=== PATIENT | male | born 1980 | race Two or more races ===

== ENCOUNTER → 2018-05-31 | Outpatient (CLI) | payer OTHER ==
[~2018-05-31] MED LIST: ACET-1156 PO; FURO20TA3 PO; LACT10SO66 PO; OME20GT PO; PROP60CA34 PO; SPIR50TA5 PO
[2018-05-31 09:45] LABS: Basophils # (auto) 0.1 uL; Eosinophils # (auto) 0.4 uL; Lymphocytes # (auto) 0.4 uL; White Blood Cell 4.1 10^3/uL (4.4-10.8)
[2018-05-31 09:45] LABS: BUN/Creatinine Ratio 16.3; Calcium 7.3 mg/dL (8.5-10.1); Potassium 3.9 mmol/L (3.5-5.1)
[2018-05-31 09:47] LABS: Basophils % (auto) 2.8 % (0.0-2.0); Eosinophils % (auto) 10.7 % (0.0-7.0); Hemoglobin 11.5 g/dL (13.5-17.5); Lymphocytes % (auto) 9.6 % (10.0-50.0); Mean Corpuscular Hemoglobin 31.5 pg (28.0-32.0); Mean Corpuscular Hgb Conc. 33.8 g/dL (32.0-36.0); Mean Corpuscular Volume 93.2 fL (80.0-100.0); Monocytes # (auto) 0.4 uL; Monocytes % (auto) 8.5 % (0.0-12.0); Neutrophils # (auto) 2.8 uL; Neutrophils % (auto) 68.4 % (37.0-80.0); Red Blood Cells 3.65 10^6/uL (4.5-5.90); Red Cell Distribution Width 16.5 % (11.8-14.3)
[2018-05-31 10:00] LABS: Platelet Count (auto) 53 10^3/uL (140-450)
[2018-05-31 10:14] LABS: INR 1.42 (0.9-1.15); Prothrombin Time 14.9 sec (9.27-12.13)
== END | disposition home or self-care (01) ==
LOC: US 08:14
DX: R18.8 Other ascites (principal)
CPT/HCPCS: 36415; 49083; 76705; 76942; 80048; 85025; 85610; C1729; 10022

== ENCOUNTER 2018-06-10 22:59 | Inpatient (IN) | payer OTHER ==
[~2018-06-10] VITALS: Ht 157.5 cm; Wt 57.7 kg
[2018-06-10] MEDS: MIDAZOLAM DRIP 50 mg/50mL 50 ML IV SCH (00:05)
[2018-06-10] MEDS ORDERED: SODIUM CHLORIDE 0.9% 500 ML IV ONE (23:30)
[2018-06-10] MEDS ORDERED: DEXTROSE (50%) 50ML SYRG IV ONE (23:30)
[2018-06-10] MEDS ORDERED: ETOMIDATE (2MG/ML) 20ML VIAL IV ONE (23:45)
[2018-06-10] MEDS ORDERED: SUCCINYLCHOLINE CHLORIDE 20 MG/ML 10ML VIAL IV ONE (23:45)
[2018-06-11] VITALS (70 sets, daily range): BP systolic 72–115; BP diastolic 31–73
[2018-06-11 00:07] LABS: Hemoglobin 13.4 g/dL (13.5-17.5); Mean Corpuscular Hemoglobin 31.4 pg (28.0-32.0); Mean Corpuscular Volume 98.4 fL (80.0-100.0); Platelet Count (auto) 91 10^3/uL (140-450); Red Blood Cells 4.27 10^6/uL (4.5-5.90); Red Cell Distribution Width 17.6 % (11.8-14.3)
[2018-06-11 00:12] LABS: Basophils % (manual) 0 (0.0-2.0); Blast Cells 0; Myelocytes % 0; Promyelocytes % 0; Reactive Lymphocytes 0
[2018-06-11] MEDS ORDERED: SODIUM BICARBONATE 8.4 % INJ 50ML VIAL IV ONE ×2 (00:15→02:00)
[2018-06-11 00:16] LABS: Alanine Aminotransferase 19 U/L (16-61); Albumin 1.6 g/dL (3.4-5.0); Anion Gap 17 (5-15); Aspartate Aminotransferase 49 U/L (15-37); BUN/Creatinine Ratio 19.7; Blood Alcohol < 3.0 mg/dL (0-5); Blood Urea Nitrogen 40 mg/dL (7-18); Calcium 7.9 mg/dL (8.5-10.1); Carbon Dioxide 14 mmol/L (21-32); Chloride 98 mmol/L (98-107); GFR African American 47 mL/min; GFR Non-African American 39 mL/min; Glucose 144 mg/dL (74-106); INR 3.63 (0.9-1.15); Magnesium 2.4 mg/dL (1.6-2.6); Prothrombin Time 36.1 sec (9.27-12.13); Sodium 129 mmol/L (136-145)
[2018-06-11 00:17] LABS: Lactic Acid w/Reflex 9.4 mmol/L (0.4-2.0)
[2018-06-11 00:19] LABS: Partial Thromboplastin Time 76.9 sec (23.78-33.04)
[2018-06-11] MEDS ORDERED: NOREPINEPHRINE 8 MG/250ML KIT 250 ML IV ONE (00:20)
[2018-06-11 00:23] LABS: Potassium 6.9 mmol/L (3.5-5.1)
[2018-06-11 00:28] LABS: Alkaline Phosphatase 58 U/L (45-117); Bilirubin, Total 7.5 mg/dL (0.2-1.0); Total Protein 6.9 g/dL (6.4-8.2)
[2018-06-11] MEDS: NOREPINEPHRINE 8 MG/250ML KIT 250 ML IV SCH ×4 (00:40→22:06)
[2018-06-11 00:50] LABS: Band Neutrophils % (manual) 20; Eosinophils % (manual) 1 (0-7); Lymphocytes % (manual) 9 (10.0-50.0); Metamyelocytes % 5; Monocytes % (manual) 6 (0-12)
[2018-06-11 01:04] LABS: Urine WBC None Seen /hpf (0 - 3)
[2018-06-11] MEDS ORDERED: InsuLIN REG 1unit/0.01ml Soln (100units/ml) IV ONE (01:15)
[2018-06-11] MEDS ORDERED: CALCIUM GLUC 4.65meq/50ml D5AE 50 ML IV ONE (01:15)
[2018-06-11] MEDS ORDERED: VANCOMYCIN 1GM/250ML 250 ML IV ONE (01:15)
[2018-06-11] MEDS ORDERED: cefTRIAXone 1GM/10ml IVPUSH 10 ML IV ONE (01:15)
[2018-06-11] MEDS ORDERED: SODIUM CHLORIDE 0.9% 1,750 ML IV ONE (01:15)
[2018-06-11] MEDS ORDERED: DEXTROSE (50%) 50ML SYRG IV ONE ×2 (01:15→21:30)
[2018-06-11 01:22] LABS: Urine Bacteria NONE SEEN /hpf (None Seen); Urine Blood Negative /uL (Negative); Urine Hyaline Cast FEW /lpf (0 - 2); Urine Mucus FEW (None Seen); Urine Specific Gravity 1.013 (1.001-1.035)
[2018-06-11 01:29] LABS: Alcohol, Urine < 3.0 mg/dL (0-5); Amphetamine Screen, Urine NEGATIVE (NEGATIVE); Barbiturate Scree,Urine NEGATIVE (NEGATIVE); Benzodiazephine Screen, Urine NEGATIVE (NEGATIVE); Cannabinoid Screen, Urine NEGATIVE (NEGATIVE); Cocaine Screen, Urine NEGATIVE (NEGATIVE); Opiate Scree,Urine NEGATIVE (NEGATIVE); Phencyclidine Screen, Urine NEGATIVE (NEGATIVE)
[2018-06-11] MEDS ORDERED: EPINEPHrine HCL INJECTION 4 MG in SODIUM CHL 0.9% 250 ML IV ONE (01:45)
[2018-06-11] MEDS ORDERED: EPINEPHrine HCL 250 ML IV ONE (01:53)
[2018-06-11] MEDS ORDERED: LACTULOSE 20Gm/30ML SOLN PO ONE (02:00)
[2018-06-11] MEDS ORDERED: ALBUMIN 5% 500 ML IV ONE (03:15)
[2018-06-11] MEDS ORDERED: SODIUM POLYSTYRENE SULF 15GM/60ML SUSP PO ONE (03:15)
[2018-06-11] MEDS ORDERED: HETASTARCH 500 ML IV ONE (07:00)
[2018-06-11] MEDS ORDERED: DEXTROSE 50% SYRINGE 50 ML IV ONE ×2 (07:08→21:32)
[2018-06-11] MEDS ORDERED: FUROSEMIDE INJECTION 100 MG in SODIUM CHL 0.9% 90 ML IV ONE (07:30)
[2018-06-11] MEDS: DEXTROSE 10% 1,000 ML IV SCH ×2 (07:30→21:30)
[2018-06-11] MEDS: DOPamine 3200MCG/ML 250 ML IV SCH (08:00)
[2018-06-11] MEDS ORDERED: STERILE WATER IV ONE (08:15)
[2018-06-11] MEDS ORDERED: SODIUM BICARBONATE IV ONE (08:15)
[2018-06-11] MEDS ORDERED: fentaNYL Drip 2500mCg/250mlNS 250 ML IV ONE (09:02)
[2018-06-11 09:11] LABS: Hematocrit 32.9 % (41.0-53.0); Hemoglobin 10.6 g/dL (13.5-17.5); Mean Corpuscular Hemoglobin 30.9 pg (28.0-32.0); Mean Corpuscular Hgb Conc. 32.3 g/dL (32.0-36.0); Mean Corpuscular Volume 95.8 fL (80.0-100.0); Platelet Count (auto) 70 10^3/uL (140-450); Red Blood Cells 3.43 10^6/uL (4.5-5.90); Red Cell Distribution Width 17.1 % (11.8-14.3); White Blood Cell 13.2 10^3/uL (4.4-10.8)
[2018-06-11 09:22] LABS: Albumin 1.7 g/dL (3.4-5.0); BUN/Creatinine Ratio 20.6; Calcium 7.2 mg/dL (8.5-10.1); Potassium 5.3 mmol/L (3.5-5.1)
[2018-06-11 09:25] LABS: Total Protein 5.8 g/dL (6.4-8.2)
[2018-06-11 09:29] LABS: Basophils % (manual) 0 (0.0-2.0); Blast Cells 0; Eosinophils % (manual) 0 (0-7); Promyelocytes % 0; Reactive Lymphocytes 0
[2018-06-11] MEDS: fentaNYL Drip 2500mCg/250mlNS 250 ML IV SCH (09:32)
[2018-06-11] MEDS: MIDAZOLAM DRIP 50 mg/50mL 50 ML IV SCH (09:51)
[2018-06-11] MEDS: cefTRIAXone 1GM/10ml IVPUSH 10 ML IV SCH ×2 (10:09→21:37)
[2018-06-11 10:39] LABS: Band Neutrophils % (manual) 29; Lymphocytes % (manual) 9 (10.0-50.0); Metamyelocytes % 5; Monocytes % (manual) 4 (0-12); Myelocytes % 1
[2018-06-11] MEDS: ALBUMIN 25% 100 ML IV SCH ×2 (10:45→17:49)
[2018-06-11 11:54] LABS: BUN/Creatinine Ratio 22.3; Calcium 7.3 mg/dL (8.5-10.1); Potassium 5.2 mmol/L (3.5-5.1)
[2018-06-11] MEDS ORDERED: phytonadione 10 MG in SODIUM CHL 0.9% 50 ML IV ONE (12:45)
[2018-06-11] MEDS ORDERED: LIDOCAINE 1% (LOCAL ANESTH.) PF 5ml SDV ONE (13:07)
[2018-06-11] MEDS: LACTULOSE 20Gm/30ML SOLN PO SCH ×2 (13:15→17:49)
[2018-06-11] MEDS: PANTOPRAZOLE 40 MG/10 ML VIAL IV SCH (13:23)
[2018-06-11] MEDS ORDERED: VANCOMYCIN PER PHARMACY 0 MG IV SCH (13:45)
[2018-06-11 14:37] LABS: Urine Bacteria None Seen /hpf (None Seen); Urine WBC None Seen /hpf (0 - 3)
[2018-06-11 14:55] LABS: Lactic Acid w/Reflex 10.4 mmol/L (0.4-2.0)
[2018-06-11] MEDS: VANCOMYCIN 1GM/250ML 250 ML IV SCH (15:00)
[2018-06-11 15:13] LABS: Creatinine, Urine 104 mg/dL (30.0-125.0); Sodium Urine 20 mmol/L (40-220)
[2018-06-11 22:25] LABS: BUN/Creatinine Ratio 22.2; Calcium 7.1 mg/dL (8.5-10.1); Potassium 4.7 mmol/L (3.5-5.1)
[2018-06-12] VITALS (116 sets, daily range): BP systolic 65–142; BP diastolic 30–82
[2018-06-12] MEDS: LACTULOSE 20Gm/30ML SOLN PO SCH ×5 (00:14→23:43)
[2018-06-12] MEDS: ACCU-CHEK COMFORT CURVE STRIP VI SCH ×11 (00:14→22:00)
[2018-06-12] MEDS ORDERED: OME20GT PO (00:33)
[2018-06-12] MEDS ORDERED: ACET-1156 PO (00:33)
[2018-06-12] MEDS ORDERED: SPIR50TA5 PO (00:33)
[2018-06-12] MEDS ORDERED: PROP60CA34 PO (00:33)
[2018-06-12] MEDS ORDERED: LACT10SO66 PO (00:33)
[2018-06-12] MEDS ORDERED: FURO20TA3 PO (00:33)
[2018-06-12] MEDS: NOREPINEPHRINE 8 MG/250ML KIT 250 ML IV SCH ×3 (03:00→21:45)
[2018-06-12] MEDS: ALBUMIN 25% 100 ML IV SCH (03:19)
[2018-06-12 04:30] LABS: White Blood Cell 12.3 10^3/uL (4.4-10.8)
[2018-06-12 04:32] LABS: Hematocrit 27.5 % (41.0-53.0); Hemoglobin 9.3 g/dL (13.5-17.5); Mean Corpuscular Hemoglobin 31.9 pg (28.0-32.0); Mean Corpuscular Hgb Conc. 33.9 g/dL (32.0-36.0); Mean Corpuscular Volume 94.2 fL (80.0-100.0); Platelet Count (auto) 27 10^3/uL (140-450); Red Blood Cells 2.92 10^6/uL (4.5-5.90); Red Cell Distribution Width 16.6 % (11.8-14.3)
[2018-06-12 04:46] LABS: Basophils % (manual) 0 (0.0-2.0); Blast Cells 0; Promyelocytes % 0; Reactive Lymphocytes 0
[2018-06-12 04:58] LABS: Albumin 2.2 g/dL (3.4-5.0); BUN/Creatinine Ratio 26.9; Potassium 4.4 mmol/L (3.5-5.1)
[2018-06-12 05:01] LABS: Bilirubin, Total 7.4 mg/dL (0.2-1.0); Total Protein 5.6 g/dL (6.4-8.2)
[2018-06-12 05:43] LABS: Band Neutrophils % (manual) 19; Eosinophils % (manual) 1 (0-7); Lymphocytes % (manual) 5 (10.0-50.0); Metamyelocytes % 4; Monocytes % (manual) 10 (0-12); Myelocytes % 1
[2018-06-12] MEDS: DOPamine 3200MCG/ML 250 ML IV SCH ×2 (08:00→21:44)
[2018-06-12] MEDS: fentaNYL Drip 2500mCg/250mlNS 250 ML IV SCH (09:04)
[2018-06-12] MEDS: cefTRIAXone 1GM/10ml IVPUSH 10 ML IV SCH (09:20)
[2018-06-12] MEDS: PANTOPRAZOLE 40 MG/10 ML VIAL IV SCH (09:20)
[2018-06-12 10:17] LABS: BUN/Creatinine Ratio 29.8; Calcium 7.2 mg/dL (8.5-10.1); Potassium 3.9 mmol/L (3.5-5.1)
[2018-06-12] MEDS: VANCOMYCIN 1GM/250ML 250 ML IV SCH (15:00)
[2018-06-12] MEDS: PIPERACILLIN-TAZOB 3.375GM 100 ML IV SCH ×2 (16:24→21:43)
[2018-06-12] MEDS: HYDROCORTISONE SOD SUCC 100 MG/2ML INJ VIAL IV SCH ×2 (17:59→21:43)
[2018-06-12] MEDS: DEXTROSE 10% 1,000 ML IV SCH (21:43)
[2018-06-12] MEDS ORDERED: PIPERACILLIN-TAZOB 2.25GM 50 ML IV SCH (22:00)
[2018-06-12] MEDS: MIDAZOLAM DRIP 50 mg/50mL 50 ML IV SCH (23:45)
[2018-06-13] VITALS (112 sets, daily range): BP systolic 68–146; BP diastolic 36–77
[2018-06-13 00:32] LABS: BUN/Creatinine Ratio 36.3; Potassium 3.9 mmol/L (3.5-5.1)
[2018-06-13] MEDS: ACCU-CHEK COMFORT CURVE STRIP VI SCH ×11 (02:19→22:00)
[2018-06-13] MEDS: PIPERACILLIN-TAZOB 3.375GM 100 ML IV SCH ×4 (04:00→22:09)
[2018-06-13] MEDS: HYDROCORTISONE SOD SUCC 100 MG/2ML INJ VIAL IV SCH ×3 (06:07→22:09)
[2018-06-13] MEDS: LACTULOSE 20Gm/30ML SOLN PO SCH ×3 (06:07→18:25)
[2018-06-13] MEDS: fentaNYL Drip 2500mCg/250mlNS 250 ML IV SCH (09:04)
[2018-06-13] MEDS: PANTOPRAZOLE 40 MG/10 ML VIAL IV SCH (09:25)
[2018-06-13 10:31] LABS: Hematocrit 29.1 % (41.0-53.0); Hemoglobin 9.8 g/dL (13.5-17.5); Mean Corpuscular Hemoglobin 31.1 pg (28.0-32.0); Mean Corpuscular Hgb Conc. 33.6 g/dL (32.0-36.0); Mean Corpuscular Volume 92.6 fL (80.0-100.0); Red Blood Cells 3.14 10^6/uL (4.5-5.90); Red Cell Distribution Width 16.2 % (11.8-14.3); White Blood Cell 13.4 10^3/uL (4.4-10.8)
[2018-06-13 10:36] LABS: Basophils % (manual) 0 (0.0-2.0); Blast Cells 0; Metamyelocytes % 0; Myelocytes % 0; Promyelocytes % 0; Reactive Lymphocytes 0
[2018-06-13 10:45] LABS: INR 1.91 (0.9-1.15); Prothrombin Time 19.7 sec (9.27-12.13)
[2018-06-13 11:08] LABS: Albumin 2.1 g/dL (3.4-5.0); BUN/Creatinine Ratio 39.1; Bilirubin, Total 9.9 mg/dL (0.2-1.0); Calcium 7.4 mg/dL (8.5-10.1); Magnesium 2.7 mg/dL (1.6-2.6); Potassium 3.6 mmol/L (3.5-5.1); Total Protein 5.5 g/dL (6.4-8.2)
[2018-06-13 11:35] LABS: Eosinophils % (manual) 1 (0-7)
[2018-06-13 11:36] LABS: Platelet Count (auto) 16 10^3/uL (140-450)
[2018-06-13 11:38] LABS: Band Neutrophils % (manual) 5; Lymphocytes % (manual) 3 (10.0-50.0); Monocytes % (manual) 4 (0-12)
[2018-06-13] MEDS: VANCOMYCIN 1GM/250ML 250 ML IV SCH (14:09)
[2018-06-13] MEDS: THIAMINE 100mg/ml INJ (200mg/2ml VIAL) IV SCH (14:17)
[2018-06-13 17:57] LABS: % Iron Saturation 73.2 % (20-55)
[2018-06-13 18:10] LABS: Folate (Folic Acid) 5.49 ng/mL (5.38-24)
[2018-06-13] MEDS: DEXTROSE 10% 1,000 ML IV SCH (19:30)
[2018-06-13 22:51] LABS: BUN/Creatinine Ratio 46.7; Calcium 7.6 mg/dL (8.5-10.1); Potassium 3.2 mmol/L (3.5-5.1)
[2018-06-13] MEDS: MIDAZOLAM DRIP 50 mg/50mL 50 ML IV SCH (23:45)
[2018-06-14] VITALS (106 sets, daily range): BP systolic 101–156; BP diastolic 59–96
[2018-06-14] MEDS ORDERED: DEXTROSE (50%) 50ML SYRG IV PRN (00:15)
[2018-06-14] MEDS: LACTULOSE 20Gm/30ML SOLN PO SCH ×4 (00:23→18:47)
[2018-06-14] MEDS: NOREPINEPHRINE 8 MG/250ML KIT 250 ML IV SCH (00:45)
[2018-06-14] MEDS: POTASSIUM CHL 20MEQ/100ML 100 ML IV SCH ×2 (01:05→03:35)
[2018-06-14] MEDS: ACCU-CHEK COMFORT CURVE STRIP VI SCH ×5 (03:44→19:45)
[2018-06-14] MEDS: InsuLIN REG 1unit/0.01ml Soln (100units/ml) SC SCH ×5 (03:44→19:45)
[2018-06-14] MEDS: PIPERACILLIN-TAZOB 3.375GM 100 ML IV SCH ×4 (05:30→22:19)
[2018-06-14] MEDS: HYDROCORTISONE SOD SUCC 100 MG/2ML INJ VIAL IV SCH ×3 (05:44→22:19)
[2018-06-14] MEDS: DOPamine 3200MCG/ML 250 ML IV SCH ×2 (08:00→17:33)
[2018-06-14] MEDS: fentaNYL Drip 2500mCg/250mlNS 250 ML IV SCH (09:04)
[2018-06-14] MEDS: THIAMINE 100mg/ml INJ (200mg/2ml VIAL) IV SCH (09:56)
[2018-06-14] MEDS: PANTOPRAZOLE 40 MG/10 ML VIAL IV SCH (09:56)
[2018-06-14 11:16] LABS: Basophils # (auto) 0 uL; Eosinophils # (auto) 0 uL; Lymphocytes % (auto) 3.3 % (10.0-50.0); Mean Corpuscular Volume 92.9 fL (80.0-100.0); Red Cell Distribution Width 16.3 % (11.8-14.3)
[2018-06-14 11:17] LABS: Hematocrit 30.3 % (41.0-53.0); Hemoglobin 10.3 g/dL (13.5-17.5); Lymphocytes # (auto) 0.6 uL; Mean Corpuscular Hemoglobin 31.7 pg (28.0-32.0); Mean Corpuscular Hgb Conc. 34.1 g/dL (32.0-36.0); Monocytes # (auto) 1.1 uL; Monocytes % (auto) 6.3 % (0.0-12.0); Neutrophils # (auto) 15.2 uL; Neutrophils % (auto) 90.4 % (37.0-80.0); Nucleated Red Blood Cells % 0.5 %; Platelet Count (auto) 22 10^3/uL (140-450); Red Blood Cells 3.26 10^6/uL (4.5-5.90); White Blood Cell 16.8 10^3/uL (4.4-10.8)
[2018-06-14 11:29] LABS: Albumin 2.1 g/dL (3.4-5.0); BUN/Creatinine Ratio 50.6; Bilirubin, Total 11.3 mg/dL (0.2-1.0); Calcium 7.6 mg/dL (8.5-10.1); Potassium 3.6 mmol/L (3.5-5.1)
[2018-06-14] MEDS: VANCOMYCIN 1GM/250ML 250 ML IV SCH (14:55)
[2018-06-14] MEDS ORDERED: THIAMINE INJ 100 MG, MULTIPLE VITAMIN 10 ML, FOLIC ACID 1 MG, MAGNESIUM SULF SDV 50% 8 ... IV SCH ×5 (18:45)
[2018-06-14] MEDS: [UNRECOGNIZED DRUG - OTHER] IV SCH (21:14)
[2018-06-14] MEDS: FOLIC ACID IV SCH (21:14)
[2018-06-14] MEDS: MULTIPLE VITAMIN IV SCH (21:14)
[2018-06-14] MEDS: THIAMINE IV SCH (21:14)
[2018-06-14 23:34] LABS: BUN/Creatinine Ratio 55.1; Calcium 7.6 mg/dL (8.5-10.1); Potassium 3.5 mmol/L (3.5-5.1)
[2018-06-15] VITALS (94 sets, daily range): BP systolic 74–161; BP diastolic 43–84
[2018-06-15] MEDS: InsuLIN REG 1unit/0.01ml Soln (100units/ml) SC SCH ×7 (00:08→23:48)
[2018-06-15] MEDS: ACCU-CHEK COMFORT CURVE STRIP VI SCH ×7 (00:08→23:48)
[2018-06-15] MEDS: LACTULOSE 20Gm/30ML SOLN PO SCH ×5 (00:13→23:47)
[2018-06-15] MEDS: VANCOMYCIN 1GM/250ML 250 ML IV SCH ×2 (03:00→16:08)
[2018-06-15] MEDS: PIPERACILLIN-TAZOB 3.375GM 100 ML IV SCH ×4 (04:00→22:00)
[2018-06-15] MEDS: HYDROCORTISONE SOD SUCC 100 MG/2ML INJ VIAL IV SCH ×3 (06:00→16:14)
[2018-06-15 09:00] LABS: Hematocrit 30.5 % (41.0-53.0); Hemoglobin 10.7 g/dL (13.5-17.5); Mean Corpuscular Hemoglobin 32.5 pg (28.0-32.0); Mean Corpuscular Hgb Conc. 34.9 g/dL (32.0-36.0); Red Blood Cells 3.28 10^6/uL (4.5-5.90); Red Cell Distribution Width 16.3 % (11.8-14.3); White Blood Cell 16.3 10^3/uL (4.4-10.8)
[2018-06-15] MEDS: fentaNYL Drip 2500mCg/250mlNS 250 ML IV SCH ×2 (09:04→19:45)
[2018-06-15 09:07] LABS: Platelet Count (auto) 18 10^3/uL (140-450)
[2018-06-15 09:08] LABS: Basophils % (manual) 0 (0.0-2.0); Blast Cells 0; Eosinophils % (manual) 0 (0-7); Metamyelocytes % 0; Myelocytes % 0; Promyelocytes % 0; Reactive Lymphocytes 0
[2018-06-15] MEDS: NOREPINEPHRINE 8 MG/250ML KIT 250 ML IV SCH (09:16)
[2018-06-15] MEDS: MIDAZOLAM DRIP 50 mg/50mL 50 ML IV SCH (09:16)
[2018-06-15] MEDS: DEXTROSE 10% 1,000 ML IV SCH (09:23)
[2018-06-15] MEDS: PANTOPRAZOLE 40 MG/10 ML VIAL IV SCH (10:13)
[2018-06-15 10:48] LABS: Band Neutrophils % (manual) 1; Lymphocytes % (manual) 2 (10.0-50.0); Monocytes % (manual) 6 (0-12)
[2018-06-15 10:57] LABS: BUN/Creatinine Ratio 50.7; Calcium 7.7 mg/dL (8.5-10.1); Potassium 3.4 mmol/L (3.5-5.1)
[2018-06-15] MEDS: POTASSIUM CHL 20MEQ/100ML 100 ML IV SCH ×2 (20:58→23:00)
[2018-06-15] MEDS: [UNRECOGNIZED DRUG - OTHER] IV SCH (20:59)
[2018-06-15] MEDS: FOLIC ACID IV SCH (20:59)
[2018-06-15] MEDS: MULTIPLE VITAMIN IV SCH (20:59)
[2018-06-15] MEDS: THIAMINE IV SCH (20:59)
[2018-06-16] VITALS (104 sets, daily range): BP systolic 93–153; BP diastolic 51–89
[2018-06-16] MEDS: DOPamine 3200MCG/ML 250 ML IV SCH (00:01)
[2018-06-16] MEDS: VANCOMYCIN 1GM/250ML 250 ML IV SCH ×2 (02:47→16:27)
[2018-06-16] MEDS: InsuLIN REG 1unit/0.01ml Soln (100units/ml) SC SCH ×5 (04:00→20:08)
[2018-06-16 04:14] LABS: BUN/Creatinine Ratio 52.3; Calcium 7.4 mg/dL (8.5-10.1); Potassium 3.6 mmol/L (3.5-5.1)
[2018-06-16] MEDS: ACCU-CHEK COMFORT CURVE STRIP VI SCH ×5 (04:28→20:08)
[2018-06-16] MEDS: PIPERACILLIN-TAZOB 3.375GM 100 ML IV SCH ×4 (04:28→21:41)
[2018-06-16] MEDS: HYDROCORTISONE SOD SUCC 100 MG/2ML INJ VIAL IV SCH ×3 (06:08→21:41)
[2018-06-16] MEDS: LACTULOSE 20Gm/30ML SOLN PO SCH ×3 (06:08→18:23)
[2018-06-16] MEDS: MIDAZOLAM DRIP 50 mg/50mL 50 ML IV SCH ×2 (10:04→23:45)
[2018-06-16] MEDS: NOREPINEPHRINE 8 MG/250ML KIT 250 ML IV SCH (10:04)
[2018-06-16] MEDS: PANTOPRAZOLE 40 MG/10 ML VIAL IV SCH (10:17)
[2018-06-16 10:57] LABS: Hemoglobin 9.4 g/dL (13.5-17.5); White Blood Cell 13.1 10^3/uL (4.4-10.8)
[2018-06-16 10:58] LABS: Mean Corpuscular Hemoglobin 31.5 pg (28.0-32.0); Mean Corpuscular Hgb Conc. 33.6 g/dL (32.0-36.0); Mean Corpuscular Volume 93.6 fL (80.0-100.0); Red Blood Cells 2.99 10^6/uL (4.5-5.90); Red Cell Distribution Width 16.1 % (11.8-14.3)
[2018-06-16 11:06] LABS: Platelet Count (auto) 15 10^3/uL (140-450)
[2018-06-16 11:07] LABS: Basophils % (manual) 0 (0.0-2.0); Blast Cells 0; Eosinophils % (manual) 0 (0-7); Metamyelocytes % 0; Myelocytes % 0; Promyelocytes % 0; Reactive Lymphocytes 0
[2018-06-16 11:12] LABS: BUN/Creatinine Ratio 45.2; Calcium 7.6 mg/dL (8.5-10.1); Potassium 3.4 mmol/L (3.5-5.1)
[2018-06-16 11:37] LABS: Band Neutrophils % (manual) 1; Lymphocytes % (manual) 2 (10.0-50.0); Monocytes % (manual) 1 (0-12)
[2018-06-16] MEDS: FUROSEMIDE INJECTION 100 MG in D5W 5% 90 ML IV SCH (12:10)
[2018-06-16] MEDS ORDERED: ALBUMIN 25% 100 ML IV ONE (17:45)
[2018-06-16] MEDS ORDERED: DIGOXIN (250MCG/ML) 2 ML AMPULE IV ONE (17:45)
[2018-06-16] MEDS ORDERED: DIGOXIN (250MCG/ML) 2 ML AMPULE ONE (17:48)
[2018-06-16] MEDS ORDERED: AMIODARONE HCL 900 MG IV ONE (17:49)
[2018-06-16] MEDS ORDERED: SUCCINYLCHOLINE CHLORIDE 20 MG/ML 10ML VIAL IV ONE (18:00)
[2018-06-16] MEDS ORDERED: ETOMIDATE (2MG/ML) 20ML VIAL IV ONE ×4 (18:00→22:15)
[2018-06-16] MEDS ORDERED: LIDOCAINE 1% (LOCAL ANESTH.) PF 5ml SDV ONE (20:29)
[2018-06-16] MEDS ORDERED: PROPOFOL 0 ML IV ONE (20:33)
[2018-06-16] MEDS: MULTIPLE VITAMIN IV SCH (21:41)
[2018-06-16] MEDS: FOLIC ACID IV SCH (21:41)
[2018-06-16] MEDS: THIAMINE IV SCH (21:41)
[2018-06-16] MEDS: [UNRECOGNIZED DRUG - OTHER] IV SCH (21:41)
[2018-06-16] MEDS ORDERED: LORazepam 2MG/ML-1ML VIAL IV PRN (22:30)
[2018-06-16 22:41] LABS: BUN/Creatinine Ratio 39.7; Calcium 7.6 mg/dL (8.5-10.1); Potassium 3.1 mmol/L (3.5-5.1)
[2018-06-16] MEDS: AMIODARONE HCL 900 MG in DEXTROSE 500 ML IV SCH (23:51)
[2018-06-17] VITALS (69 sets, daily range): BP systolic 87–161; BP diastolic 32–102
[2018-06-17] MEDS ORDERED: POTASSIUM CHL 20MEQ/100ML 100 ML IV PRN
[2018-06-17] MEDS: ACCU-CHEK COMFORT CURVE STRIP VI SCH ×6 (00:02→20:06)
[2018-06-17] MEDS: LACTULOSE 20Gm/30ML SOLN PO SCH ×4 (00:02→19:00)
[2018-06-17] MEDS: POTASSIUM CHL 20MEQ/100ML 100 ML IV SCH ×2 (00:02→02:06)
[2018-06-17] MEDS: InsuLIN REG 1unit/0.01ml Soln (100units/ml) SC SCH ×6 (00:23→20:06)
[2018-06-17] MEDS: NOREPINEPHRINE 8 MG/250ML KIT 250 ML IV SCH (00:45)
[2018-06-17] MEDS: VANCOMYCIN 1GM/250ML 250 ML IV SCH ×2 (03:10→14:45)
[2018-06-17] MEDS: fentaNYL Drip 2500mCg/250mlNS 250 ML IV SCH (04:10)
[2018-06-17] MEDS: PIPERACILLIN-TAZOB 3.375GM 100 ML IV SCH ×4 (04:25→22:08)
[2018-06-17] MEDS ORDERED: FUROSEMIDE INJECTION 10 ML ONE (04:36)
[2018-06-17] MEDS: FUROSEMIDE INJECTION 100 MG in D5W 5% 90 ML IV SCH (04:42)
[2018-06-17] MEDS: HYDROCORTISONE SOD SUCC 100 MG/2ML INJ VIAL IV SCH ×2 (07:10→14:44)
[2018-06-17] MEDS: DOPamine 3200MCG/ML 250 ML IV SCH (09:36)
[2018-06-17 11:17] LABS: Platelet Count (auto) 40 10^3/uL (140-450)
[2018-06-17] MEDS: PANTOPRAZOLE 40 MG/10 ML VIAL IV SCH (11:18)
[2018-06-17 11:19] LABS: Hematocrit 25.9 % (41.0-53.0); Hemoglobin 8.8 g/dL (13.5-17.5); Mean Corpuscular Hemoglobin 32.8 pg (28.0-32.0); Mean Corpuscular Hgb Conc. 33.9 g/dL (32.0-36.0); Mean Corpuscular Volume 96.7 fL (80.0-100.0); Red Blood Cells 2.68 10^6/uL (4.5-5.90); Red Cell Distribution Width 16.5 % (11.8-14.3); White Blood Cell 26.1 10^3/uL (4.4-10.8)
[2018-06-17 11:22] LABS: Basophils % (manual) 0 (0.0-2.0); Blast Cells 0; Metamyelocytes % 0; Myelocytes % 0; Promyelocytes % 0; Reactive Lymphocytes 0
[2018-06-17] MEDS ORDERED: MORPHINE SULF INJ 2 MG/ML SYRINGE 1ML ONE (11:25)
[2018-06-17 11:27] LABS: INR 1.72 (0.9-1.15); Partial Thromboplastin Time 40.8 sec (23.78-33.04); Prothrombin Time 17.8 sec (9.27-12.13)
[2018-06-17 11:39] LABS: BUN/Creatinine Ratio 36.2; Calcium 7.1 mg/dL (8.5-10.1); Potassium 3.5 mmol/L (3.5-5.1)
[2018-06-17] MEDS: MORPHINE SULF INJ 2 MG/ML SYRINGE 1ML IV PRN ×2 (11:40→16:27)
[2018-06-17 12:41] LABS: Band Neutrophils % (manual) 1; Eosinophils % (manual) 1 (0-7); Lymphocytes % (manual) 3 (10.0-50.0); Monocytes % (manual) 5 (0-12)
[2018-06-17] MEDS ORDERED: FUROSEMIDE INJECTION 100 MG in D5W 5% 90 ML IV SCH (18:30)
[2018-06-17] MEDS: PROPOFOL 100 ML IV SCH (20:06)
[2018-06-17] MEDS: THIAMINE IV SCH (21:01)
[2018-06-17] MEDS: FOLIC ACID IV SCH (21:01)
[2018-06-17] MEDS: [UNRECOGNIZED DRUG - OTHER] IV SCH (21:01)
[2018-06-17] MEDS: MULTIPLE VITAMIN IV SCH (21:01)
[2018-06-17 22:42] LABS: BUN/Creatinine Ratio 32.2; Calcium 7.1 mg/dL (8.5-10.1); Potassium 3.5 mmol/L (3.5-5.1)
[2018-06-17] MEDS: AMIODARONE HCL 900 MG in DEXTROSE 500 ML IV SCH (23:12)
[2018-06-18] VITALS (109 sets, daily range): BP systolic 89–150; BP diastolic 32–79
[2018-06-18] MEDS: ACCU-CHEK COMFORT CURVE STRIP VI SCH ×5 (00:04→18:14)
[2018-06-18] MEDS: InsuLIN REG 1unit/0.01ml Soln (100units/ml) SC SCH ×5 (00:06→18:14)
[2018-06-18] MEDS: LACTULOSE 20Gm/30ML SOLN PO SCH ×4 (00:06→18:15)
[2018-06-18] MEDS: NOREPINEPHRINE 8 MG/250ML KIT 250 ML IV SCH (00:45)
[2018-06-18] MEDS: VANCOMYCIN 1GM/250ML 250 ML IV SCH ×2 (03:11→15:10)
[2018-06-18 03:51] LABS: Basophils # (auto) 0 uL; Eosinophils # (auto) 0 uL; Hemoglobin 8.4 g/dL (13.5-17.5); Lymphocytes # (auto) 0.4 uL; Lymphocytes % (auto) 2.5 % (10.0-50.0); Mean Corpuscular Hemoglobin 32.2 pg (28.0-32.0); Mean Corpuscular Volume 96.3 fL (80.0-100.0); Neutrophils # (auto) 16.3 uL; White Blood Cell 17.6 10^3/uL (4.4-10.8)
[2018-06-18 03:54] LABS: Mean Corpuscular Hgb Conc. 33.5 g/dL (32.0-36.0); Monocytes # (auto) 0.9 uL; Monocytes % (auto) 4.9 % (0.0-12.0); Neutrophils % (auto) 92.6 % (37.0-80.0); Nucleated Red Blood Cells % 0.1 %; Platelet Count (auto) 30 10^3/uL (140-450); Red Blood Cells 2.59 10^6/uL (4.5-5.90)
[2018-06-18] MEDS: PIPERACILLIN-TAZOB 3.375GM 100 ML IV SCH ×4 (04:07→21:35)
[2018-06-18 04:25] LABS: BUN/Creatinine Ratio 27.1; Bilirubin, Total 13.8 mg/dL (0.2-1.0); Calcium 7.1 mg/dL (8.5-10.1); Magnesium 2.2 mg/dL (1.6-2.6); Phosphorus 3.6 mg/dL (2.5-4.90); Potassium 3.6 mmol/L (3.5-5.1); Total Protein 5.7 g/dL (6.4-8.2)
[2018-06-18] MEDS: fentaNYL Drip 2500mCg/250mlNS 250 ML IV SCH ×2 (05:30→20:00)
[2018-06-18] MEDS: DOPamine 3200MCG/ML 250 ML IV SCH (05:33)
[2018-06-18] MEDS ORDERED: POTASSIUM CHL 20MEQ/100ML 100 ML IV SCH (11:00)
[2018-06-18] MEDS: PANTOPRAZOLE 40 MG/10 ML VIAL IV SCH (11:00)
[2018-06-18] MEDS ORDERED: POTASSIUM CHL 20MEQ/100ML 100 ML IV ONE (11:30)
[2018-06-18] MEDS: PROPOFOL 100 ML IV SCH (14:45)
[2018-06-18] MEDS ORDERED: LIDOCAINE 1% (LOCAL ANESTH.) PF 5ml SDV ONE (15:41)
[2018-06-18] MEDS ORDERED: ALBUMIN 25% 100 ML IV PRN (16:45)
[2018-06-18] MEDS ORDERED: DEXTROSE (50%) 50ML SYRG IV PRN (18:00)
[2018-06-18] MEDS: FOLIC ACID IV SCH (20:44)
[2018-06-18] MEDS: [UNRECOGNIZED DRUG - OTHER] IV SCH (20:44)
[2018-06-18] MEDS: THIAMINE IV SCH (20:44)
[2018-06-18] MEDS: MULTIPLE VITAMIN IV SCH (20:44)
[2018-06-18] MEDS: AMIODARONE HCL 900 MG in DEXTROSE 500 ML IV SCH (23:51)
[2018-06-19] VITALS (101 sets, daily range): BP systolic 91–159; BP diastolic 32–87
[2018-06-19] MEDS: PROPOFOL 100 ML IV SCH
[2018-06-19] MEDS: ACCU-CHEK COMFORT CURVE STRIP VI SCH ×4 (00:01→18:04)
[2018-06-19] MEDS: InsuLIN REG 1unit/0.01ml Soln (100units/ml) SC SCH ×4 (00:01→18:04)
[2018-06-19] MEDS: NOREPINEPHRINE 8 MG/250ML KIT 250 ML IV SCH (00:45)
[2018-06-19] MEDS: VANCOMYCIN 1GM/250ML 250 ML IV SCH (03:01)
[2018-06-19] MEDS: PIPERACILLIN-TAZOB 3.375GM 100 ML IV SCH ×2 (03:54→10:08)
[2018-06-19 05:00] LABS: Basophils # (auto) 0.1 uL; Eosinophils # (auto) 0 uL; Lymphocytes # (auto) 0.3 uL; Monocytes # (auto) 0.8 uL; Neutrophils # (auto) 12.4 uL
[2018-06-19 05:02] LABS: Basophils % (auto) 0.4 % (0.0-2.0); Eosinophils % (auto) 0.1 % (0.0-7.0); Hematocrit 22.2 % (41.0-53.0); Hemoglobin 7.6 g/dL (13.5-17.5); Lymphocytes % (auto) 2.1 % (10.0-50.0); Mean Corpuscular Hemoglobin 33.3 pg (28.0-32.0); Mean Corpuscular Hgb Conc. 34.2 g/dL (32.0-36.0); Mean Corpuscular Volume 97.2 fL (80.0-100.0); Monocytes % (auto) 5.8 % (0.0-12.0); Neutrophils % (auto) 91.6 % (37.0-80.0); Nucleated Red Blood Cells % 0.1 %; Platelet Count (auto) 49 10^3/uL (140-450); Red Blood Cells 2.28 10^6/uL (4.5-5.90); Red Cell Distribution Width 16.6 % (11.8-14.3); White Blood Cell 13.5 10^3/uL (4.4-10.8)
[2018-06-19 05:16] LABS: Albumin 2.2 g/dL (3.4-5.0); BUN/Creatinine Ratio 27.1; Bilirubin, Total 14.2 mg/dL (0.2-1.0); Calcium 7.4 mg/dL (8.5-10.1); Total Protein 5.4 g/dL (6.4-8.2)
[2018-06-19 05:18] LABS: Potassium 2.8 mmol/L (3.5-5.1)
[2018-06-19] MEDS: LACTULOSE 20Gm/30ML SOLN PO SCH ×5 (05:30→22:09)
[2018-06-19] MEDS: DOPamine 3200MCG/ML 250 ML IV SCH (08:00)
[2018-06-19] MEDS: POTASSIUM CHL 20MEQ/100ML 100 ML IV SCH ×6 (08:22→20:30)
[2018-06-19] MEDS: AMIODARONE HCL 900 MG in DEXTROSE 500 ML IV SCH (08:23)
[2018-06-19] MEDS: PANTOPRAZOLE 40 MG/10 ML VIAL IV SCH (10:08)
[2018-06-19] MEDS ORDERED: POTASSIUM CHL 20MEQ/100ML 100 ML IV SCH ×2 (12:00→13:15)
[2018-06-19] MEDS ORDERED: FUROSEMIDE 40 MG/4 ML VIAL IV ONE (13:30)
[2018-06-19] MEDS: cefTRIAXone 1GM/10ml IVPUSH 10 ML IV SCH (14:37)
[2018-06-19 20:01] LABS: Basophils # (auto) 0.1 uL; Eosinophils # (auto) 0 uL; Eosinophils % (auto) 0.1 % (0.0-7.0); Lymphocytes # (auto) 0.4 uL; Monocytes # (auto) 1.3 uL; Nucleated Red Blood Cells % 0.2 %
[2018-06-19 20:04] LABS: Basophils % (auto) 0.3 % (0.0-2.0); Hematocrit 28.8 % (41.0-53.0); Hemoglobin 9.5 g/dL (13.5-17.5); Lymphocytes % (auto) 1.7 % (10.0-50.0); Mean Corpuscular Hemoglobin 32.4 pg (28.0-32.0); Mean Corpuscular Hgb Conc. 33.1 g/dL (32.0-36.0); Mean Corpuscular Volume 97.8 fL (80.0-100.0); Monocytes % (auto) 5.5 % (0.0-12.0); Neutrophils # (auto) 22.2 uL; Neutrophils % (auto) 92.4 % (37.0-80.0); Platelet Count (auto) 53 10^3/uL (140-450); Red Blood Cells 2.95 10^6/uL (4.5-5.90); Red Cell Distribution Width 18.3 % (11.8-14.3)
[2018-06-19 20:19] LABS: BUN/Creatinine Ratio 21.9; Calcium 7.8 mg/dL (8.5-10.1); Magnesium 1.8 mg/dL (1.6-2.6); Potassium 3.4 mmol/L (3.5-5.1)
[2018-06-19] MEDS: [UNRECOGNIZED DRUG - OTHER] IV SCH (20:45)
[2018-06-19] MEDS: FOLIC ACID IV SCH (20:45)
[2018-06-19] MEDS: THIAMINE IV SCH (20:45)
[2018-06-19] MEDS: MULTIPLE VITAMIN IV SCH (20:45)
[2018-06-19] MEDS: RIFAXIMIN 550 MG TAB PO SCH (22:08)
[2018-06-19] MEDS: AMIODARONE HCL 200 MG TAB PO SCH (22:09)
[2018-06-20] MEDS: ACCU-CHEK COMFORT CURVE STRIP VI SCH ×3 (00:24→12:00)
[2018-06-20] MEDS: InsuLIN REG 1unit/0.01ml Soln (100units/ml) SC SCH ×4 (00:24→19:03)
[2018-06-20] MEDS: NOREPINEPHRINE 8 MG/250ML KIT 250 ML IV SCH (00:45)
[2018-06-20 04:57] VITALS: BP 130/63
[2018-06-20 07:38] LABS: Potassium 3.4 mmol/L (3.5-5.1)
[2018-06-20 07:42] LABS: BUN/Creatinine Ratio 21.7; Calcium 7.6 mg/dL (8.5-10.1)
[2018-06-20 07:51] LABS: Hematocrit 27.5 % (41.0-53.0); Hemoglobin 9.4 g/dL (13.5-17.5); Mean Corpuscular Hemoglobin 33.4 pg (28.0-32.0); Mean Corpuscular Volume 98.2 fL (80.0-100.0); Platelet Count (auto) 47 10^3/uL (140-450); White Blood Cell 20.7 10^3/uL (4.4-10.8)
[2018-06-20] MEDS: DOPamine 3200MCG/ML 250 ML IV SCH (08:00)
[2018-06-20 08:23] LABS: Red Cell Distribution Width 21.6 % (11.8-14.3)
[2018-06-20 08:25] LABS: Basophils % (manual) 0 (0.0-2.0); Blast Cells 0; Eosinophils % (manual) 0 (0-7); Lymphocytes % (manual) 0 (10.0-50.0); Myelocytes % 0; Promyelocytes % 0; Reactive Lymphocytes 0
[2018-06-20 09:00] VITALS: BP 114/52
[2018-06-20] MEDS: cefTRIAXone 1GM/10ml IVPUSH 10 ML IV SCH (09:43)
[2018-06-20] MEDS: PANTOPRAZOLE 40 MG/10 ML VIAL IV SCH (09:44)
[2018-06-20] MEDS: LACTULOSE 20Gm/30ML SOLN PO SCH ×2 (09:45→21:22)
[2018-06-20] MEDS ORDERED: FUROSEMIDE 40 MG/4 ML VIAL IV SCH (10:00)
[2018-06-20 10:38] LABS: Band Neutrophils % (manual) 3; Metamyelocytes % 1; Monocytes % (manual) 1 (0-12)
[2018-06-20 13:00] VITALS: BP 108/52
[2018-06-20] MEDS ORDERED: InsuLIN REG 1unit/0.01ml Soln (100units/ml) ONE (13:21)
[2018-06-20] MEDS ORDERED: POTASSIUM CHL 20 Meq TABLET PO ONE (13:30)
[2018-06-20] MEDS: AMIODARONE HCL 200 MG TAB PO SCH ×2 (13:36→21:30)
[2018-06-20] MEDS: RIFAXIMIN 550 MG TAB PO SCH ×2 (14:22→21:23)
[2018-06-20] MEDS ORDERED: SPIRONOLACTONE 25 MG TAB PO ONE (14:30)
[2018-06-20 16:55] VITALS: BP 128/62
[2018-06-20] MEDS: FUROSEMIDE 40 MG/4 ML VIAL IV SCH (19:02)
[2018-06-20] MEDS: [UNRECOGNIZED DRUG - OTHER] IV SCH (21:22)
[2018-06-20] MEDS: THIAMINE IV SCH (21:22)
[2018-06-20] MEDS: FOLIC ACID IV SCH (21:22)
[2018-06-20] MEDS: MULTIPLE VITAMIN IV SCH (21:22)
[2018-06-20] MEDS: POTASSIUM CHL 20 Meq TABLET PO SCH (21:23)
[2018-06-20 22:00] VITALS: BP 107/56
[2018-06-21] MEDS: ACCU-CHEK COMFORT CURVE STRIP VI SCH ×3 (00:15→12:00)
[2018-06-21] MEDS: InsuLIN REG 1unit/0.01ml Soln (100units/ml) SC SCH ×4 (00:16→17:47)
[2018-06-21 05:00] VITALS: BP 117/59
[2018-06-21] MEDS: FUROSEMIDE 40 MG/4 ML VIAL IV SCH ×2 (05:58→17:47)
[2018-06-21 07:02] LABS: Albumin 1.9 g/dL (3.4-5.0); Calcium 7.5 mg/dL (8.5-10.1); Potassium 3.3 mmol/L (3.5-5.1)
[2018-06-21 07:13] LABS: Bilirubin, Total 20.5 mg/dL (0.2-1.0); Total Protein 5.7 g/dL (6.4-8.2)
[2018-06-21 08:30] VITALS: BP 110/54
[2018-06-21 08:42] LABS: Eosinophils # (auto) 0 uL; Hemoglobin 9.4 g/dL (13.5-17.5); Lymphocytes # (auto) 0.4 uL; Nucleated Red Blood Cells % 0.1 %; Platelet Count (auto) 57 10^3/uL (140-450)
[2018-06-21 08:43] LABS: Basophils # (auto) 0.1 uL; Basophils % (auto) 0.5 % (0.0-2.0); Eosinophils % (auto) 0.2 % (0.0-7.0); Hematocrit 27.9 % (41.0-53.0); Lymphocytes % (auto) 2.5 % (10.0-50.0); Mean Corpuscular Hemoglobin 32.9 pg (28.0-32.0); Mean Corpuscular Hgb Conc. 33.7 g/dL (32.0-36.0); Mean Corpuscular Volume 97.6 fL (80.0-100.0); Monocytes # (auto) 1.2 uL; Monocytes % (auto) 7.5 % (0.0-12.0); Neutrophils # (auto) 14.2 uL; Neutrophils % (auto) 89.3 % (37.0-80.0); Red Blood Cells 2.85 10^6/uL (4.5-5.90); White Blood Cell 15.9 10^3/uL (4.4-10.8)
[2018-06-21 08:48] LABS: Red Cell Distribution Width 24.6 % (11.8-14.3)
[2018-06-21] MEDS: cefTRIAXone 1GM/10ml IVPUSH 10 ML IV SCH (09:51)
[2018-06-21] MEDS: PANTOPRAZOLE 40 MG/10 ML VIAL IV SCH (09:51)
[2018-06-21] MEDS: LACTULOSE 20Gm/30ML SOLN PO SCH ×2 (09:51→21:59)
[2018-06-21] MEDS: AMIODARONE HCL 200 MG TAB PO SCH ×2 (09:52→21:59)
[2018-06-21] MEDS: RIFAXIMIN 550 MG TAB PO SCH ×2 (09:52→21:59)
[2018-06-21] MEDS: SPIRONOLACTONE 25 MG TAB PO SCH (09:52)
[2018-06-21] MEDS: POTASSIUM CHL 20 Meq TABLET PO SCH ×2 (09:52→21:59)
[2018-06-21 12:49] VITALS: BP 119/55
[2018-06-21] MEDS ORDERED: ONDANSETRON HCL 4 MG/2 ML VIAL IV PRN (13:45)
[2018-06-21] MEDS ORDERED: POTASSIUM CHL 20 Meq TABLET PO ONE (14:00)
[2018-06-21 16:42] VITALS: BP 119/60
[2018-06-21] MEDS: [UNRECOGNIZED DRUG - OTHER] IV SCH (21:58)
[2018-06-21] MEDS: THIAMINE IV SCH (21:58)
[2018-06-21] MEDS: MULTIPLE VITAMIN IV SCH (21:58)
[2018-06-21] MEDS: FOLIC ACID IV SCH (21:58)
[2018-06-22] MEDS: FUROSEMIDE 40 MG/4 ML VIAL IV SCH ×2 (05:40→17:58)
[2018-06-22] MEDS: InsuLIN REG 1unit/0.01ml Soln (100units/ml) SC SCH ×4 (05:41→17:58)
[2018-06-22] MEDS: ACCU-CHEK COMFORT CURVE STRIP VI SCH ×4 (05:41→17:58)
[2018-06-22 06:11] VITALS: BP 163/81
[2018-06-22 07:44] LABS: INR 1.69 (0.9-1.15); Prothrombin Time 17.6 sec (9.27-12.13)
[2018-06-22 07:46] LABS: BUN/Creatinine Ratio 22.4; Potassium 3.1 mmol/L (3.5-5.1)
[2018-06-22 07:47] LABS: Albumin 1.8 g/dL (3.4-5.0); Calcium 7.3 mg/dL (8.5-10.1)
[2018-06-22 07:57] LABS: Total Protein 5.6 g/dL (6.4-8.2)
[2018-06-22 07:59] LABS: Bilirubin, Total 22.3 mg/dL (0.2-1.0)
[2018-06-22] MEDS: Glucerna Carbsteady SHAKE Vanilla 8oz PO SCH ×3 (08:00→17:58)
[2018-06-22 08:30] VITALS: BP 109/56
[2018-06-22] MEDS: cefTRIAXone 1GM/10ml IVPUSH 10 ML IV SCH (08:48)
[2018-06-22] MEDS: POTASSIUM CHL 20 Meq TABLET PO SCH ×2 (10:43→21:46)
[2018-06-22] MEDS: RIFAXIMIN 550 MG TAB PO SCH ×2 (10:43→21:45)
[2018-06-22] MEDS: PANTOPRAZOLE 40 MG/10 ML VIAL IV SCH (10:43)
[2018-06-22] MEDS: AMIODARONE HCL 200 MG TAB PO SCH ×2 (10:43→21:46)
[2018-06-22] MEDS: LACTULOSE 20Gm/30ML SOLN PO SCH ×2 (10:43→21:45)
[2018-06-22] MEDS: SPIRONOLACTONE 25 MG TAB PO SCH (10:44)
[2018-06-22 12:30] VITALS: BP 120/61
[2018-06-22] MEDS ORDERED: POTASSIUM CHL 20 Meq TABLET PO ONE (12:30)
[2018-06-22] MEDS ORDERED: LIDOCAINE 2% (LOCAL ANESTH.) PF 5ml SDV ONE (13:38)
[2018-06-22] MEDS ORDERED: LIDOCAINE 1% (LOCAL ANESTH.) PF 5ml SDV ID ONE (16:30)
[2018-06-22 17:31] VITALS: BP 108/49
[2018-06-22] MEDS: [UNRECOGNIZED DRUG - OTHER] IV SCH (21:45)
[2018-06-22] MEDS: MULTIPLE VITAMIN IV SCH (21:45)
[2018-06-22] MEDS: THIAMINE IV SCH (21:45)
[2018-06-22] MEDS: FOLIC ACID IV SCH (21:45)
[2018-06-22] MEDS: SODIUM CHLOR 0.9% PF (SALINE LOCK) 10ML VIAL/SYR IV SCH (21:47)
[2018-06-22 22:00] VITALS: BP 108/60
[2018-06-23] MEDS: InsuLIN REG 1unit/0.01ml Soln (100units/ml) SC SCH ×5 (00:24→23:37)
[2018-06-23] MEDS: ACCU-CHEK COMFORT CURVE STRIP VI SCH ×5 (00:24→23:37)
[2018-06-23 05:00] VITALS: BP 113/64
[2018-06-23] MEDS: FUROSEMIDE 40 MG/4 ML VIAL IV SCH ×2 (06:03→17:58)
[2018-06-23 07:53] LABS: Albumin 1.7 g/dL (3.4-5.0); BUN/Creatinine Ratio 22.9; Calcium 6.9 mg/dL (8.5-10.1); Potassium 3.1 mmol/L (3.5-5.1); Total Protein 5.5 g/dL (6.4-8.2)
[2018-06-23 07:55] LABS: Bilirubin, Total 22.4 mg/dL (0.2-1.0)
[2018-06-23] MEDS: Glucerna Carbsteady SHAKE Vanilla 8oz PO SCH ×3 (08:00→18:00)
[2018-06-23 09:29] VITALS: BP 112/60
[2018-06-23] MEDS: SODIUM CHLOR 0.9% PF (SALINE LOCK) 10ML VIAL/SYR IV SCH ×2 (10:00→21:38)
[2018-06-23] MEDS ORDERED: POTASSIUM CHL 20 Meq TABLET PO ONE (10:45)
[2018-06-23] MEDS: RIFAXIMIN 550 MG TAB PO SCH ×2 (11:11→22:00)
[2018-06-23] MEDS: POTASSIUM EFFERVESENT TAB 25 MEQ PO SCH ×4 (11:13→21:37)
[2018-06-23] MEDS: LACTULOSE 20Gm/30ML SOLN PO SCH ×2 (11:14→21:29)
[2018-06-23] MEDS: PANTOPRAZOLE 40 MG/10 ML VIAL IV SCH (11:15)
[2018-06-23] MEDS: cefTRIAXone 1GM/10ml IVPUSH 10 ML IV SCH (11:15)
[2018-06-23] MEDS: AMIODARONE HCL 200 MG TAB PO SCH ×2 (11:15→21:32)
[2018-06-23] MEDS: SPIRONOLACTONE 25 MG TAB PO SCH (11:19)
[2018-06-23 14:02] VITALS: BP 108/60
[2018-06-23 18:06] VITALS: BP 108/62
[2018-06-23] MEDS: [UNRECOGNIZED DRUG - OTHER] IV SCH (21:27)
[2018-06-23] MEDS: MULTIPLE VITAMIN IV SCH (21:27)
[2018-06-23] MEDS: FOLIC ACID IV SCH (21:27)
[2018-06-23] MEDS: THIAMINE IV SCH (21:27)
[2018-06-23 22:00] VITALS: BP 109/61
[2018-06-24 05:00] VITALS: BP 108/59
[2018-06-24] MEDS: FUROSEMIDE 40 MG/4 ML VIAL IV SCH ×2 (05:28→17:42)
[2018-06-24] MEDS: InsuLIN REG 1unit/0.01ml Soln (100units/ml) SC SCH ×3 (05:31→17:47)
[2018-06-24] MEDS: ACCU-CHEK COMFORT CURVE STRIP VI SCH ×3 (05:31→17:47)
[2018-06-24] MEDS: Glucerna Carbsteady SHAKE Vanilla 8oz PO SCH ×3 (08:00→18:00)
[2018-06-24 08:47] LABS: Albumin 1.7 g/dL (3.4-5.0); Calcium 7.3 mg/dL (8.5-10.1); Potassium 4.3 mmol/L (3.5-5.1)
[2018-06-24 08:50] LABS: BUN/Creatinine Ratio 16.1
[2018-06-24 09:00] VITALS: BP 104/63
[2018-06-24 09:01] LABS: Bilirubin, Total 24.4 mg/dL (0.2-1.0); Total Protein 6.2 g/dL (6.4-8.2)
[2018-06-24] MEDS: SODIUM CHLOR 0.9% PF (SALINE LOCK) 10ML VIAL/SYR IV SCH ×2 (10:00→21:22)
[2018-06-24] MEDS: LACTULOSE 20Gm/30ML SOLN PO SCH ×2 (10:45→21:18)
[2018-06-24] MEDS: PANTOPRAZOLE 40 MG/10 ML VIAL IV SCH (10:45)
[2018-06-24] MEDS: cefTRIAXone 1GM/10ml IVPUSH 10 ML IV SCH (10:45)
[2018-06-24] MEDS: SPIRONOLACTONE 25 MG TAB PO SCH (10:46)
[2018-06-24] MEDS: POTASSIUM EFFERVESENT TAB 25 MEQ PO SCH ×2 (10:47→21:19)
[2018-06-24] MEDS: RIFAXIMIN 550 MG TAB PO SCH ×2 (10:47→21:15)
[2018-06-24] MEDS: AMIODARONE HCL 200 MG TAB PO SCH ×2 (10:47→21:17)
[2018-06-24 13:00] VITALS: BP 109/66
[2018-06-24 17:00] VITALS: BP 109/60
[2018-06-24] MEDS: FOLIC ACID IV SCH (20:34)
[2018-06-24] MEDS: THIAMINE IV SCH (20:34)
[2018-06-24] MEDS: [UNRECOGNIZED DRUG - OTHER] IV SCH (20:34)
[2018-06-24] MEDS: MULTIPLE VITAMIN IV SCH (20:34)
[2018-06-24 22:00] VITALS: BP 110/61
[2018-06-25] MEDS: ACCU-CHEK COMFORT CURVE STRIP VI SCH ×5 (00:37→23:18)
[2018-06-25] MEDS: InsuLIN REG 1unit/0.01ml Soln (100units/ml) SC SCH ×5 (00:39→23:17)
[2018-06-25 05:00] VITALS: BP 118/66
[2018-06-25] MEDS: FUROSEMIDE 40 MG/4 ML VIAL IV SCH ×2 (06:15→18:13)
[2018-06-25] MEDS: Glucerna Carbsteady SHAKE Vanilla 8oz PO SCH ×3 (07:21→17:01)
[2018-06-25 07:50] VITALS: BP 113/61
[2018-06-25] MEDS: PANTOPRAZOLE 40 MG/10 ML VIAL IV SCH (09:58)
[2018-06-25] MEDS: SODIUM CHLOR 0.9% PF (SALINE LOCK) 10ML VIAL/SYR IV SCH ×2 (09:59→21:15)
[2018-06-25] MEDS: cefTRIAXone 1GM/10ml IVPUSH 10 ML IV SCH (09:59)
[2018-06-25] MEDS: SPIRONOLACTONE 25 MG TAB PO SCH (09:59)
[2018-06-25] MEDS: POTASSIUM EFFERVESENT TAB 25 MEQ PO SCH ×2 (10:00→21:14)
[2018-06-25] MEDS: AMIODARONE HCL 200 MG TAB PO SCH ×2 (10:00→21:10)
[2018-06-25] MEDS: RIFAXIMIN 550 MG TAB PO SCH ×3 (10:00→21:09)
[2018-06-25] MEDS: LACTULOSE 20Gm/30ML SOLN PO SCH ×2 (10:14→21:09)
[2018-06-25 11:57] VITALS: BP 110/64
[2018-06-25 14:11] LABS: Basophils # (auto) 0 uL; Eosinophils # (auto) 0 uL; Eosinophils % (auto) 0.3 % (0.0-7.0); Lymphocytes # (auto) 0.4 uL; Neutrophils % (auto) 82.6 % (37.0-80.0); Platelet Count (auto) 61 10^3/uL (140-450)
[2018-06-25 14:15] LABS: Basophils % (auto) 0.3 % (0.0-2.0); Hematocrit 33.1 % (41.0-53.0); Hemoglobin 11.5 g/dL (13.5-17.5); Lymphocytes % (auto) 4.2 % (10.0-50.0); Mean Corpuscular Hemoglobin 34.8 pg (28.0-32.0); Mean Corpuscular Hgb Conc. 34.7 g/dL (32.0-36.0); Mean Corpuscular Volume 100.4 fL (80.0-100.0); Monocytes # (auto) 1.2 uL; Monocytes % (auto) 12.6 % (0.0-12.0); Neutrophils # (auto) 7.8 uL; Nucleated Red Blood Cells % 0.2 %; Red Blood Cells 3.29 10^6/uL (4.5-5.90); White Blood Cell 9.5 10^3/uL (4.4-10.8)
[2018-06-25 14:26] LABS: Albumin 1.5 g/dL (3.4-5.0); Calcium 7.1 mg/dL (8.5-10.1)
[2018-06-25 14:34] LABS: Red Cell Distribution Width 26.2 % (11.8-14.3)
[2018-06-25 14:38] LABS: Bilirubin, Total 24.4 mg/dL (0.2-1.0); Total Protein 6.3 g/dL (6.4-8.2)
[2018-06-25 17:16] VITALS: BP 118/58
[2018-06-25] MEDS: traMADol HCL 50 MG TAB PO PRN ×2 (18:01→23:56)
[2018-06-25] MEDS: FOLIC ACID IV SCH (20:27)
[2018-06-25] MEDS: [UNRECOGNIZED DRUG - OTHER] IV SCH (20:27)
[2018-06-25] MEDS: MULTIPLE VITAMIN IV SCH (20:27)
[2018-06-25] MEDS: THIAMINE IV SCH (20:27)
[2018-06-25 22:11] VITALS: BP 107/67
[2018-06-26 05:35] VITALS: BP 105/62
[2018-06-26] MEDS: InsuLIN REG 1unit/0.01ml Soln (100units/ml) SC SCH ×4 (06:00→23:42)
[2018-06-26 06:28] LABS: Albumin 1.4 g/dL (3.4-5.0); Calcium 6.8 mg/dL (8.5-10.1); Potassium 3.7 mmol/L (3.5-5.1)
[2018-06-26 06:31] LABS: BUN/Creatinine Ratio 18.4
[2018-06-26 06:41] LABS: Bilirubin, Total 23.9 mg/dL (0.2-1.0); Total Protein 6.1 g/dL (6.4-8.2)
[2018-06-26] MEDS: FUROSEMIDE 40 MG/4 ML VIAL IV SCH ×2 (06:44→18:06)
[2018-06-26] MEDS: ACCU-CHEK COMFORT CURVE STRIP VI SCH ×4 (06:44→23:42)
[2018-06-26 08:41] VITALS: BP 102/57
[2018-06-26] MEDS: cefTRIAXone 1GM/10ml IVPUSH 10 ML IV SCH (10:01)
[2018-06-26] MEDS: SODIUM CHLOR 0.9% PF (SALINE LOCK) 10ML VIAL/SYR IV SCH ×2 (10:01→21:45)
[2018-06-26] MEDS: PANTOPRAZOLE 40 MG/10 ML VIAL IV SCH (10:01)
[2018-06-26] MEDS: LACTULOSE 20Gm/30ML SOLN PO SCH ×2 (10:01→21:45)
[2018-06-26] MEDS: AMIODARONE HCL 200 MG TAB PO SCH ×2 (10:02→21:44)
[2018-06-26] MEDS: SPIRONOLACTONE 25 MG TAB PO SCH (10:02)
[2018-06-26] MEDS: POTASSIUM EFFERVESENT TAB 25 MEQ PO SCH ×2 (10:03→21:43)
[2018-06-26] MEDS: RIFAXIMIN 550 MG TAB PO SCH ×2 (10:05→21:41)
[2018-06-26] MEDS: Glucerna Carbsteady SHAKE Vanilla 8oz PO SCH ×3 (10:06→18:05)
[2018-06-26 13:00] VITALS: BP 96/55
[2018-06-26] MEDS: PROPRANOLOL HCL 20 MG TAB PO SCH ×2 (14:30→21:42)
[2018-06-26 17:00] VITALS: BP 108/63
[2018-06-26] MEDS: FOLIC ACID IV SCH (21:41)
[2018-06-26] MEDS: [UNRECOGNIZED DRUG - OTHER] IV SCH (21:41)
[2018-06-26] MEDS: MULTIPLE VITAMIN IV SCH (21:41)
[2018-06-26] MEDS: THIAMINE IV SCH (21:41)
[2018-06-26] MEDS: traMADol HCL 50 MG TAB PO PRN (21:44)
[2018-06-26 22:00] VITALS: BP 106/62
[2018-06-27 05:00] VITALS: BP 85/48
[2018-06-27] MEDS: FUROSEMIDE 40 MG/4 ML VIAL IV SCH ×2 (05:15→17:36)
[2018-06-27] MEDS: ACCU-CHEK COMFORT CURVE STRIP VI SCH ×3 (05:15→17:35)
[2018-06-27] MEDS: InsuLIN REG 1unit/0.01ml Soln (100units/ml) SC SCH ×3 (05:22→17:36)
[2018-06-27 08:00] VITALS: BP 88/51
[2018-06-27] MEDS: Glucerna Carbsteady SHAKE Vanilla 8oz PO SCH ×3 (08:42→17:35)
[2018-06-27] MEDS: PANTOPRAZOLE 40 MG/10 ML VIAL IV SCH (08:42)
[2018-06-27] MEDS: cefTRIAXone 1GM/10ml IVPUSH 10 ML IV SCH (08:42)
[2018-06-27] MEDS: LACTULOSE 20Gm/30ML SOLN PO SCH ×2 (08:42→22:00)
[2018-06-27] MEDS: POTASSIUM EFFERVESENT TAB 25 MEQ PO SCH ×2 (08:43→22:20)
[2018-06-27] MEDS: SPIRONOLACTONE 25 MG TAB PO SCH (08:44)
[2018-06-27] MEDS: RIFAXIMIN 550 MG TAB PO SCH ×2 (08:47→22:20)
[2018-06-27] MEDS: SODIUM CHLOR 0.9% PF (SALINE LOCK) 10ML VIAL/SYR IV SCH ×2 (08:49→22:36)
[2018-06-27] MEDS: AMIODARONE HCL 200 MG TAB PO SCH (10:00)
[2018-06-27 13:03] VITALS: BP 91/48
[2018-06-27] MEDS: PIPERACILLIN-TAZO 4.5GM 100 ML IV SCH ×2 (14:37→22:36)
[2018-06-27 16:52] VITALS: BP 89/46
[2018-06-27] MEDS: [UNRECOGNIZED DRUG - OTHER] IV SCH (20:35)
[2018-06-27] MEDS: FOLIC ACID IV SCH (20:35)
[2018-06-27] MEDS: MULTIPLE VITAMIN IV SCH (20:35)
[2018-06-27] MEDS: THIAMINE IV SCH (20:35)
[2018-06-27 22:27] VITALS: BP 94/48
[2018-06-28] MEDS: InsuLIN REG 1unit/0.01ml Soln (100units/ml) SC SCH ×4 (00:08→18:00)
[2018-06-28] MEDS: ACCU-CHEK COMFORT CURVE STRIP VI SCH ×4 (00:08→18:29)
[2018-06-28] MEDS: FUROSEMIDE 40 MG/4 ML VIAL IV SCH ×2 (05:06→18:00)
[2018-06-28] MEDS: PIPERACILLIN-TAZO 4.5GM 100 ML IV SCH ×3 (05:37→22:16)
[2018-06-28 05:46] VITALS: BP 98/53
[2018-06-28 07:37] LABS: Basophils # (auto) 0.1 uL; Hemoglobin 10.7 g/dL (13.5-17.5); Lymphocytes # (auto) 0.4 uL; Monocytes # (auto) 1.1 uL; Platelet Count (auto) 50 10^3/uL (140-450); Red Blood Cells 3.19 10^6/uL (4.5-5.90); White Blood Cell 7.7 10^3/uL (4.4-10.8)
[2018-06-28 07:41] LABS: Basophils % (auto) 0.7 % (0.0-2.0); Eosinophils # (auto) 0.1 uL; Eosinophils % (auto) 1.5 % (0.0-7.0); Hematocrit 31.7 % (41.0-53.0); Lymphocytes % (auto) 5.8 % (10.0-50.0); Mean Corpuscular Hemoglobin 33.6 pg (28.0-32.0); Mean Corpuscular Hgb Conc. 33.8 g/dL (32.0-36.0); Mean Corpuscular Volume 99.3 fL (80.0-100.0); Monocytes % (auto) 14.5 % (0.0-12.0); Neutrophils % (auto) 77.5 % (37.0-80.0); Nucleated Red Blood Cells % 0.3 %
[2018-06-28 07:56] LABS: Red Cell Distribution Width 24.5 % (11.8-14.3)
[2018-06-28 07:59] LABS: Albumin 1.2 g/dL (3.4-5.0); BUN/Creatinine Ratio 21.8; Bilirubin, Total 21.7 mg/dL (0.2-1.0); Calcium 6.5 mg/dL (8.5-10.1); Total Protein 5.9 g/dL (6.4-8.2)
[2018-06-28 09:00] VITALS: BP 96/58
[2018-06-28] MEDS: AMIODARONE HCL 200 MG TAB PO SCH (10:00)
[2018-06-28] MEDS: PANTOPRAZOLE 40 MG/10 ML VIAL IV SCH (10:31)
[2018-06-28] MEDS: LACTULOSE 20Gm/30ML SOLN PO SCH ×2 (10:31→22:16)
[2018-06-28] MEDS: SPIRONOLACTONE 25 MG TAB PO SCH (10:31)
[2018-06-28] MEDS: Glucerna Carbsteady SHAKE Vanilla 8oz PO SCH ×3 (10:32→18:29)
[2018-06-28] MEDS: POTASSIUM EFFERVESENT TAB 25 MEQ PO SCH ×2 (10:32→22:16)
[2018-06-28] MEDS: RIFAXIMIN 550 MG TAB PO SCH ×2 (10:32→22:19)
[2018-06-28] MEDS: SODIUM CHLOR 0.9% PF (SALINE LOCK) 10ML VIAL/SYR IV SCH ×2 (10:32→22:15)
[2018-06-28 13:00] VITALS: BP 90/53
[2018-06-28 17:00] VITALS: BP 90/50
[2018-06-28 21:49] VITALS: BP 93/48
[2018-06-28] MEDS: THIAMINE IV SCH (22:15)
[2018-06-28] MEDS: [UNRECOGNIZED DRUG - OTHER] IV SCH (22:15)
[2018-06-28] MEDS: MULTIPLE VITAMIN IV SCH (22:15)
[2018-06-28] MEDS: FOLIC ACID IV SCH (22:15)
[2018-06-29 05:05] VITALS: BP 82/42
[2018-06-29] MEDS: InsuLIN REG 1unit/0.01ml Soln (100units/ml) SC SCH ×4 (06:00→18:11)
[2018-06-29] MEDS: FUROSEMIDE 40 MG/4 ML VIAL IV SCH ×2 (06:00→17:55)
[2018-06-29] MEDS: PIPERACILLIN-TAZO 4.5GM 100 ML IV SCH ×3 (06:18→22:10)
[2018-06-29] MEDS: ACCU-CHEK COMFORT CURVE STRIP VI SCH ×4 (06:26→18:11)
[2018-06-29 09:36] VITALS: BP 86/47
[2018-06-29] MEDS: AMIODARONE HCL 200 MG TAB PO SCH (10:00)
[2018-06-29] MEDS: SPIRONOLACTONE 25 MG TAB PO SCH (10:00)
[2018-06-29] MEDS: LACTULOSE 20Gm/30ML SOLN PO SCH ×2 (10:05→22:10)
[2018-06-29] MEDS: PANTOPRAZOLE 40 MG/10 ML VIAL IV SCH (10:05)
[2018-06-29] MEDS: SODIUM CHLOR 0.9% PF (SALINE LOCK) 10ML VIAL/SYR IV SCH ×2 (10:05→21:33)
[2018-06-29] MEDS: Glucerna Carbsteady SHAKE Vanilla 8oz PO SCH ×3 (10:05→18:11)
[2018-06-29] MEDS: POTASSIUM EFFERVESENT TAB 25 MEQ PO SCH ×2 (10:06→22:10)
[2018-06-29] MEDS: RIFAXIMIN 550 MG TAB PO SCH ×2 (10:06→22:11)
[2018-06-29 13:15] VITALS: BP 96/55
[2018-06-29 17:20] VITALS: BP 99/55
[2018-06-29] MEDS: FOLIC ACID IV SCH (21:33)
[2018-06-29] MEDS: [UNRECOGNIZED DRUG - OTHER] IV SCH (21:33)
[2018-06-29] MEDS: MULTIPLE VITAMIN IV SCH (21:33)
[2018-06-29] MEDS: THIAMINE IV SCH (21:33)
[2018-06-29 21:46] VITALS: BP 119/65
[2018-06-30] MEDS: ACCU-CHEK COMFORT CURVE STRIP VI SCH ×4 (00:30→18:25)
[2018-06-30 05:06] VITALS: BP 96/52
[2018-06-30] MEDS: PIPERACILLIN-TAZO 4.5GM 100 ML IV SCH ×3 (05:35→22:10)
[2018-06-30] MEDS: FUROSEMIDE 40 MG/4 ML VIAL IV SCH ×2 (05:36→18:00)
[2018-06-30] MEDS: InsuLIN REG 1unit/0.01ml Soln (100units/ml) SC SCH ×4 (05:36→18:00)
[2018-06-30 09:00] VITALS: BP 94/53
[2018-06-30] MEDS: AMIODARONE HCL 200 MG TAB PO SCH (10:00)
[2018-06-30] MEDS: SPIRONOLACTONE 25 MG TAB PO SCH (10:00)
[2018-06-30] MEDS: Glucerna Carbsteady SHAKE Vanilla 8oz PO SCH ×3 (11:01→18:25)
[2018-06-30] MEDS: PANTOPRAZOLE 40 MG/10 ML VIAL IV SCH (11:01)
[2018-06-30] MEDS: SODIUM CHLOR 0.9% PF (SALINE LOCK) 10ML VIAL/SYR IV SCH ×2 (11:02→22:09)
[2018-06-30] MEDS: LACTULOSE 20Gm/30ML SOLN PO SCH ×2 (11:02→22:10)
[2018-06-30] MEDS: RIFAXIMIN 550 MG TAB PO SCH ×2 (11:03→22:19)
[2018-06-30] MEDS: POTASSIUM EFFERVESENT TAB 25 MEQ PO SCH ×2 (11:03→22:10)
[2018-06-30 13:00] VITALS: BP 90/44
[2018-06-30 17:04] VITALS: BP 93/49
[2018-06-30] MEDS: [UNRECOGNIZED DRUG - OTHER] IV SCH (21:00)
[2018-06-30] MEDS: MULTIPLE VITAMIN IV SCH (21:00)
[2018-06-30] MEDS: FOLIC ACID IV SCH (21:00)
[2018-06-30] MEDS: THIAMINE IV SCH (21:00)
[2018-06-30 22:22] VITALS: BP 89/53
[2018-07-01 05:04] VITALS: BP 98/54
[2018-07-01] MEDS: FUROSEMIDE 40 MG/4 ML VIAL IV SCH ×2 (06:00→18:27)
[2018-07-01] MEDS: PIPERACILLIN-TAZO 4.5GM 100 ML IV SCH ×3 (06:00→21:53)
[2018-07-01] MEDS: ACCU-CHEK COMFORT CURVE STRIP VI SCH ×4 (06:00→17:49)
[2018-07-01 06:10] LABS: Potassium 4.7 mmol/L (3.5-5.1)
[2018-07-01 06:15] LABS: Albumin 0.8 g/dL (3.4-5.0); BUN/Creatinine Ratio 19.1; Calcium 6.6 mg/dL (8.5-10.1)
[2018-07-01] MEDS: InsuLIN REG 1unit/0.01ml Soln (100units/ml) SC SCH ×4 (06:30→17:49)
[2018-07-01] MEDS: Glucerna Carbsteady SHAKE Vanilla 8oz PO SCH ×3 (08:00→17:48)
[2018-07-01 08:29] VITALS: BP 94/52
[2018-07-01] MEDS: PANTOPRAZOLE 40 MG/10 ML VIAL IV SCH (09:37)
[2018-07-01] MEDS: LACTULOSE 20Gm/30ML SOLN PO SCH ×2 (09:37→21:53)
[2018-07-01] MEDS: POTASSIUM EFFERVESENT TAB 25 MEQ PO SCH ×2 (09:38→21:53)
[2018-07-01] MEDS: AMIODARONE HCL 200 MG TAB PO SCH (09:38)
[2018-07-01] MEDS: SPIRONOLACTONE 25 MG TAB PO SCH (09:38)
[2018-07-01] MEDS: RIFAXIMIN 550 MG TAB PO SCH ×2 (09:46→21:54)
[2018-07-01] MEDS: SODIUM CHLOR 0.9% PF (SALINE LOCK) 10ML VIAL/SYR IV SCH ×2 (12:08→21:49)
[2018-07-01 12:30] VITALS: BP 94/55
[2018-07-01 16:11] VITALS: BP 96/52
[2018-07-01] MEDS: FOLIC ACID IV SCH (21:00)
[2018-07-01] MEDS: THIAMINE IV SCH (21:00)
[2018-07-01] MEDS: [UNRECOGNIZED DRUG - OTHER] IV SCH (21:00)
[2018-07-01] MEDS: MULTIPLE VITAMIN IV SCH (21:00)
[2018-07-01 21:49] VITALS: BP 90/55
[2018-07-02] MEDS: PIPERACILLIN-TAZO 4.5GM 100 ML IV SCH ×3 (06:00→23:07)
[2018-07-02] MEDS: InsuLIN REG 1unit/0.01ml Soln (100units/ml) SC SCH ×4 (06:00→18:00)
[2018-07-02] MEDS: ACCU-CHEK COMFORT CURVE STRIP VI SCH ×4 (06:00→18:06)
[2018-07-02] MEDS: FUROSEMIDE 40 MG/4 ML VIAL IV SCH ×2 (06:00→18:32)
[2018-07-02 06:01] VITALS: BP 90/54
[2018-07-02] MEDS: Glucerna Carbsteady SHAKE Vanilla 8oz PO SCH ×3 (08:00→18:33)
[2018-07-02 09:22] VITALS: BP 90/52
[2018-07-02] MEDS: PANTOPRAZOLE 40 MG/10 ML VIAL IV SCH (10:21)
[2018-07-02] MEDS: SODIUM CHLOR 0.9% PF (SALINE LOCK) 10ML VIAL/SYR IV SCH ×2 (10:21→22:34)
[2018-07-02] MEDS: AMIODARONE HCL 200 MG TAB PO SCH (10:22)
[2018-07-02] MEDS: POTASSIUM EFFERVESENT TAB 25 MEQ PO SCH ×2 (10:22→22:34)
[2018-07-02] MEDS: SPIRONOLACTONE 25 MG TAB PO SCH (10:22)
[2018-07-02] MEDS: LACTULOSE 20Gm/30ML SOLN PO SCH ×2 (10:23→22:34)
[2018-07-02] MEDS: RIFAXIMIN 550 MG TAB PO SCH ×2 (10:24→22:34)
[2018-07-02 14:32] VITALS: BP 88/51
[2018-07-02 16:47] VITALS: BP 87/51
[2018-07-02] MEDS: Pro-Stat SF 30ml Vanilla PO SCH (18:33)
[2018-07-02 21:55] VITALS: BP 89/53
[2018-07-02] MEDS: MULTIPLE VITAMIN IV SCH (22:33)
[2018-07-02] MEDS: FOLIC ACID IV SCH (22:33)
[2018-07-02] MEDS: [UNRECOGNIZED DRUG - OTHER] IV SCH (22:33)
[2018-07-02] MEDS: THIAMINE IV SCH (22:33)
[2018-07-02 23:35] LABS: Alcohol, Urine < 3.0 mg/dL (0-5); Amphetamine Screen, Urine NEGATIVE (NEGATIVE); Barbiturate Scree,Urine NEGATIVE (NEGATIVE); Benzodiazephine Screen, Urine NEGATIVE (NEGATIVE); Cannabinoid Screen, Urine NEGATIVE (NEGATIVE); Cocaine Screen, Urine NEGATIVE (NEGATIVE); Opiate Scree,Urine NEGATIVE (NEGATIVE); Phencyclidine Screen, Urine NEGATIVE (NEGATIVE)
[2018-07-03] MEDS: ACCU-CHEK COMFORT CURVE STRIP VI SCH ×4 (00:55→17:50)
[2018-07-03 05:44] VITALS: BP 87/47
[2018-07-03] MEDS: FUROSEMIDE 40 MG/4 ML VIAL IV SCH ×2 (05:58→18:02)
[2018-07-03] MEDS: InsuLIN REG 1unit/0.01ml Soln (100units/ml) SC SCH ×4 (06:00→17:50)
[2018-07-03] MEDS: PIPERACILLIN-TAZO 4.5GM 100 ML IV SCH ×3 (06:01→22:02)
[2018-07-03] MEDS: Pro-Stat SF 30ml Vanilla PO SCH ×2 (08:00→18:43)
[2018-07-03] MEDS: Glucerna Carbsteady SHAKE Vanilla 8oz PO SCH ×3 (08:00→18:42)
[2018-07-03 08:49] VITALS: BP 90/50
[2018-07-03] MEDS: SPIRONOLACTONE 25 MG TAB PO SCH (10:02)
[2018-07-03] MEDS: LACTULOSE 20Gm/30ML SOLN PO SCH ×2 (10:02→22:03)
[2018-07-03] MEDS: AMIODARONE HCL 200 MG TAB PO SCH (10:03)
[2018-07-03] MEDS: SODIUM CHLOR 0.9% PF (SALINE LOCK) 10ML VIAL/SYR IV SCH ×2 (10:03→22:02)
[2018-07-03] MEDS: POTASSIUM EFFERVESENT TAB 25 MEQ PO SCH ×2 (10:03→22:04)
[2018-07-03] MEDS: PANTOPRAZOLE 40 MG/10 ML VIAL IV SCH (10:03)
[2018-07-03] MEDS: RIFAXIMIN 550 MG TAB PO SCH ×2 (10:09→22:04)
[2018-07-03 12:14] VITALS: BP 89/52
[2018-07-03 17:18] VITALS: BP 92/55
[2018-07-03] MEDS: THIAMINE IV SCH (21:56)
[2018-07-03] MEDS: [UNRECOGNIZED DRUG - OTHER] IV SCH (21:56)
[2018-07-03] MEDS: MULTIPLE VITAMIN IV SCH (21:56)
[2018-07-03] MEDS: FOLIC ACID IV SCH (21:56)
[2018-07-03 22:00] VITALS: BP 98/66
[2018-07-04] MEDS: ACCU-CHEK COMFORT CURVE STRIP VI SCH ×4 (00:20→18:06)
[2018-07-04 05:30] VITALS: BP 97/56
[2018-07-04] MEDS: PIPERACILLIN-TAZO 4.5GM 100 ML IV SCH ×2 (05:47→14:00)
[2018-07-04] MEDS: FUROSEMIDE 40 MG/4 ML VIAL IV SCH ×2 (05:53→17:07)
[2018-07-04] MEDS: InsuLIN REG 1unit/0.01ml Soln (100units/ml) SC SCH ×4 (05:54→18:00)
[2018-07-04 06:15] LABS: Basophils # (auto) 0 uL; Eosinophils # (auto) 0.1 uL; Eosinophils % (auto) 0.9 % (0.0-7.0); Lymphocytes # (auto) 0.4 uL; Neutrophils # (auto) 6.4 uL
[2018-07-04 06:17] LABS: Basophils % (auto) 0.3 % (0.0-2.0); Hematocrit 30.8 % (41.0-53.0); Hemoglobin 10.6 g/dL (13.5-17.5); Lymphocytes % (auto) 5.3 % (10.0-50.0); Mean Corpuscular Hemoglobin 34.1 pg (28.0-32.0); Mean Corpuscular Hgb Conc. 34.6 g/dL (32.0-36.0); Mean Corpuscular Volume 98.5 fL (80.0-100.0); Monocytes # (auto) 1.2 uL; Monocytes % (auto) 14.2 % (0.0-12.0); Neutrophils % (auto) 79.3 % (37.0-80.0); Platelet Count (auto) 22 10^3/uL (140-450); Red Blood Cells 3.12 10^6/uL (4.5-5.90); White Blood Cell 8.1 10^3/uL (4.4-10.8)
[2018-07-04 06:51] LABS: BUN/Creatinine Ratio 15.5; Calcium 6.6 mg/dL (8.5-10.1); Potassium 3.2 mmol/L (3.5-5.1); Red Cell Distribution Width 22.5 % (11.8-14.3); Total Protein 6.5 g/dL (6.4-8.2)
[2018-07-04 06:52] LABS: Bilirubin, Total 17.5 mg/dL (0.2-1.0)
[2018-07-04] MEDS: Glucerna Carbsteady SHAKE Vanilla 8oz PO SCH ×3 (09:00→18:05)
[2018-07-04] MEDS: Pro-Stat SF 30ml Vanilla PO SCH ×2 (09:00→18:06)
[2018-07-04 09:33] VITALS: BP 96/57
[2018-07-04] MEDS: PANTOPRAZOLE 40 MG/10 ML VIAL IV SCH (10:10)
[2018-07-04] MEDS: AMIODARONE HCL 200 MG TAB PO SCH (10:11)
[2018-07-04] MEDS: RIFAXIMIN 550 MG TAB PO SCH (10:11)
[2018-07-04] MEDS: SODIUM CHLOR 0.9% PF (SALINE LOCK) 10ML VIAL/SYR IV SCH (10:11)
[2018-07-04] MEDS: LACTULOSE 20Gm/30ML SOLN PO SCH (10:11)
[2018-07-04] MEDS: POTASSIUM EFFERVESENT TAB 25 MEQ PO SCH (10:11)
[2018-07-04] MEDS: SPIRONOLACTONE 25 MG TAB PO SCH (10:12)
[2018-07-04 12:36] VITALS: BP 79/41
[2018-07-04 17:01] VITALS: BP 78/43
== END 2018-07-04 19:58 | disposition short-term general hospital (02) | DRG 870 ==
LOC: EDBD 22:59 → ER 23:04 → EEVIPCON 23:04 → ICU WEST 23:05 → EAST 06-19 23:36 → TELE-EAST 06-25 01:47
PROVIDERS: ADMIT Internal Medicine; ATTEND Internal Medicine
PROC: 0W9G3ZZ Drainage of Peritoneal Cavity, Percutaneous Approach (ICD-10-PCS; principal; 2018-06-11)
PROC: 0W993ZZ Drainage of Right Pleural Cavity, Percutaneous Approach (ICD-10-PCS; 2018-06-11)
PROC: 5A1955Z Respiratory Ventilation, Greater than 96 Consecutive Hours (ICD-10-PCS; 2018-06-11)
PROC: 02H633Z Insertion of Infusion Device into Right Atrium, Percutaneous Approach (ICD-10-PCS; 2018-06-11)
PROC: 30233L1 Transfusion of Nonautologous Fresh Plasma into Peripheral Vein, Percutaneous Approach (ICD-10-PCS; 2018-06-11)
PROC: 30233K1 Transfusion of Nonautologous Frozen Plasma into Peripheral Vein, Percutaneous Approach (ICD-10-PCS; 2018-06-11)
PROC: 0BH17EZ Insertion of Endotracheal Airway into Trachea, Via Natural or Artificial Opening (ICD-10-PCS; 2018-06-11)
PROC: 30233R1 Transfusion of Nonautologous Platelets into Peripheral Vein, Percutaneous Approach (ICD-10-PCS; 2018-06-13)
PROC: 02H633Z Insertion of Infusion Device into Right Atrium, Percutaneous Approach (ICD-10-PCS; 2018-06-16)
PROC: 0W9G3ZZ Drainage of Peritoneal Cavity, Percutaneous Approach (ICD-10-PCS; 2018-06-18)
PROC: 0W9G3ZZ Drainage of Peritoneal Cavity, Percutaneous Approach (ICD-10-PCS; 2018-06-22)
PROC: 02H633Z Insertion of Infusion Device into Right Atrium, Percutaneous Approach (ICD-10-PCS; 2018-06-22)
DX: A41.1 Sepsis due to other specified staphylococcus (principal); K76.7 Hepatorenal syndrome; N18.6 End stage renal disease; K65.2 Spontaneous bacterial peritonitis; R65.21 Severe sepsis with septic shock; J96.00 Acute respiratory failure, unspecified whether with hypoxia or hypercapnia; R18.8 Other ascites; N17.9 Acute kidney failure, unspecified; D61.818 Other pancytopenia; D68.9 Coagulation defect, unspecified; E87.1 Hypo-osmolality and hyponatremia; E87.4 Mixed disorder of acid-base balance; I12.0 Hypertensive chronic kidney disease with stage 5 chronic kidney disease or end stage renal disease; I82.621 Acute embolism and thrombosis of deep veins of right upper extremity; J90 Pleural effusion, not elsewhere classified; K76.6 Portal hypertension; J98.11 Atelectasis; K72.90 Hepatic failure, unspecified without coma; K74.60 Unspecified cirrhosis of liver; E11.22 Type 2 diabetes mellitus with diabetic chronic kidney disease; E11.649 Type 2 diabetes mellitus with hypoglycemia without coma; E87.5 Hyperkalemia; D69.6 Thrombocytopenia, unspecified; E11.65 Type 2 diabetes mellitus with hyperglycemia; F17.200 Nicotine dependence, unspecified, uncomplicated; I48.91 Unspecified atrial fibrillation; N50.89 Other specified disorders of the male genital organs; Z66 Do not resuscitate; B19.20 Unspecified viral hepatitis C without hepatic coma; Z79.899 Other long term (current) drug therapy; Z74.01 Bed confinement status
CPT/HCPCS: 10022; 31500; 36415; 36569; 36600; 70450; 71045; 71046; 74176; 76775; 76870; 76942; 80048; 80053; 80202; 80307; 80320; 81001; 81015; 82140; 82570; 82607; 82746; 82805; 82962; 83540; 83550; 83605; 83615; 83735; 83935; 83986; 84100; 84300; 84484; 85007; 85025; 85027; 85610; 85730; 86703; 86850; 86900; 86901; 87040; 87070; 87077; 87081; 87086; 87186; 87205; 87493; 89051; 93005; 93971; 94002; 94003; 96361; 96374; 96375; 96376; 97110; 97116; 97163; 97530; 99291; A6257; C1729; C9113; J0171; J0330; J0610; J0696; J1265; J1815; J2001; J2250; J2543; J2704; J3430; J3480; J7060; P9047